=== PATIENT | female | born 1980 | race Caucasian/White ===

== ENCOUNTER 2018-05-06 12:31 | Emergency (ER) | payer OTHER ==
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
[2018-05-06] MEDS ORDERED: IBUPROFEN 600 MG TAB PO ONE (14:08)
[2018-05-06 14:25] VITALS: BP 128/84
== END 2018-05-06 14:23 | disposition home or self-care (01) ==
LOC: EDUNIT#
DX: S16.1XXA Strain of muscle, fascia and tendon at neck level, initial encounter (principal); R51 Headache; V49.50XA Passenger injured in collision with unspecified motor vehicles in traffic accident, initial encounter; Y92.410 Unspecified street and highway as the place of occurrence of the external cause; Y93.9 Activity, unspecified; Y99.9 Unspecified external cause status